=== PATIENT | female | born 1955 | race Caucasian/White ===

== ENCOUNTER 2019-02-23 15:12 | Emergency (ER) | payer BC ==
--- NOTE | 2019-02-23 15:27 | UC ---
Eye Complaint HPI - HPI Summary HPI Summary: 63 yo female presents with LEFT eyelid redness and swelling with left eye drainage at bedtime and in the morning. She tells me that on 02/19 she was outdoors and a bug flew behind her glasses and landed in her left eye. The next day she developed a red and swollen upper eyelid - she thought the bug bit her and that it would go away with time, but since 02/19 has not changed. She usually wears contacts, but has not since this incident. Denies fever, chills, vision changes. Has not applied ice or warm compress. Nothing OTC. - History of Current Complaint Chief Complaint: UCEye Stated Complaint: EYE COMPLAINT Time Seen by Provider: 02/23/19 15:26 Hx Obtained From: Patient Onset/Duration: Gradual Onset Severity Currently: None Pain Intensity: 0 - Allergies/Home Medications Allergies/Adverse Reactions: Allergies Allergy/AdvReac Type Severity Reaction Status Date / Time No Known Allergies Allergy Verified 02/23/19 15:22 PMH/Surg Hx/FS Hx/Imm Hx - Additional Past Medical History Additional PMH: None - Surgical History Surgical History: None Surgery Procedure, Year, and Place: ACL right knee - Family History Known Family History: Positive: Non-Contributory - Social History Occupation: Employed Full-time Lives: With Family Alcohol Use: Occasionally Substance Use Type: None Smoking Status (MU): Never Smoked Tobacco Review of Systems All Other Systems Reviewed And Are Negative: Yes Constitutional: Positive: Negative Skin: Positive: Negative Eyes: Positive: Drainage, Other - Eyelid redness and swelling ENT: Positive: Negative Respiratory: Positive: Negative Cardiovascular: Positive: Negative Neurovascular: Positive: Negative Neurological: Positive: Negative Psychological: Positive: Negative Physical Exam - Summary Physical Exam Summary: GENERAL: NAD. WDWN. No pain distress. SKIN: No rashes, sores, lesions, or open wounds. HEENT: Head: AT/NC Eyes: EOM intact. PERRLA. Conjunctiva clear without inflammation or discharge. LEFT upper eyelid with mild edema and erythema. No stye or bug bite appreciated. No periorbital cellulitis or warmth. NECK: Supple. Nontender. No lymphadenopathy. CHEST: CTAB. No r/r/w. No accessory muscle use. Breathing comfortably and in no distress. CV: RRR. Without m/r/g. Pulses intact. Cap refill <2seconds NEURO: Alert. PSYCH: Age appropriate behavior. Triage Information Reviewed: Yes Vital Signs: Initial Vital Signs Temp 98.2 F 02/23/19 15:17 Pulse 67 02/23/19 15:17 Resp 12 02/23/19 15:17 BP 89/66 02/23/19 15:17 Pulse Ox 99 02/23/19 15:17 Vital Signs Reviewed: Yes Eye Complaint Course/Dx - Course Course Of Treatment: Suspect blepharitis from bug irritating her eye. Given that she has some drainage at bedtime and in the morning, will start her with anbx eye drops at this time and advise her to refrain from contact usage until current problem has resolved. Apply a cool compress intermittently. - Differential Dx/Diagnosis Provider Diagnosis: Blepharitis Discharge - Sign-Out/Discharge Documenting (check all that apply): Patient Departure All imaging exams completed and their final reports reviewed: No Studies - Discharge Plan Condition: Stable Disposition: HOME Prescriptions: Ofloxacin 0.3% (Eye Drop) [Ocuflox OPTH 0.3% (Eye Drop)] 1 drop LEFT EYE QID #1 btl Patient Education Materials: Blepharitis (ED) Referrals: Kaykay Vazquez MD [Primary Care Provider] - Additional Instructions: If you develop a fever, shortness of breath, chest pain, new or worsening symptoms - please call your PCP or go to the ED immediately. 1) Do not wear your contacts until this problem has resolved 2) If you develop worsening eyelid swelling, pain, discharge, redness, or fever - please be rechecked immediately - Billing Disposition and Condition Condition: STABLE Disposition: Home - Attestation Statements Provider Attestation: Per institutional requirements, I have reviewed the chart, however, I was not consulted specifically or made aware of this patient by the midlevel provider. I did not personally evaluate, interact with , or disposition this patient.
[2019-02-23 15:57] VITALS: BP 100/70
== END 2019-02-23 15:58 | disposition home or self-care (01) ==
LOC: UCEAST 15:12
DX: H01.004 Unspecified blepharitis left upper eyelid (principal)
CPT/HCPCS: 99202; G0463